=== PATIENT | female | born 1945 | race Caucasian/White ===

== ENCOUNTER 2025-07-03 14:20 | Outpatient (CLI) | payer MEDICARE, OTHER ==
--- NOTE | 2025-07-03 18:10 | RADIOLOGY REPORT ---
PROCEDURE: MR MRI LUMBAR SPINE Indication: RADICULOPATHY, LUMBAR REGION COMPARISON: None TECHNIQUE: Multiplanar multisequence images of the the lumbar spine are obtained. FINDINGS: For the purpose of this examination, there are 5 lumbar vertebral body types counting from the lumbosacral junction. Lumbar heights are maintained. Moderate multilevel disc space narrowing and desiccation. No abnormal marrow edema. Conus terminates at the L2 level. Alignment grossly preserved. Colonic diverticular disease. Fluid within the lower endometrial segment/ endocervical canal. L1-2: 2 mm disc protrusion. Wzbd-ar-kzukolff facet and flavum hypertrophy. No spinal canal stenosis. Mild bilateral neural foraminal stenosis. L2-3: 2 mm disc protrusion. Uddv-ba-odvklafz facet and flavum hypertrophy. No spinal canal stenosis. Qtrq-hs-sxitmyxw bilateral neural foraminal stenosis. L3-4: 3 mm disc protrusion. Vrev-mg-odftegul facet and flavum hypertrophy. No spinal canal stenosis. Pser-zz-nrsonjke bilateral neural foraminal stenosis. L4-5: 2 mm disc protrusion. Moderate facet and flavum hypertrophy. No spinal canal stenosis. Cukv-tq-bvysjfig bilateral neural foraminal stenosis. L5-S1: Small disc protrusion. Bvla-cp-ssgcgghx facet and flavum hypertrophy. No spinal canal stenosis. Cyrz-ev-qspayfxq bilateral neural foraminal stenosis. 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 IMPRESSION: Moderate lumbar degenerative disc disease. No high-grade spinal canal stenosis. Multilevel aamb-bb-hzzuhysf neural foraminal stenosis. Colonic diverticular disease. Prominent fluid signal within the lower endometrial canal/endocervical canal. Recommend pelvic ultrasound and esthetician consultation to evaluate exclude any hetero underlying lesion/mass.
== END 2025-07-03 23:59 | disposition home or self-care (01) ==
LOC: MRI 14:20
PROVIDERS: ATTEND Anesthesiology
DX: M51.16 Intervertebral disc disorders with radiculopathy, lumbar region (principal); M53.3 Sacrococcygeal disorders, not elsewhere classified; M51.27 Other intervertebral disc displacement, lumbosacral region; M47.817 Spondylosis without myelopathy or radiculopathy, lumbosacral region; M48.07 Spinal stenosis, lumbosacral region
CPT/HCPCS: 72148